=== PATIENT | male | born 1955 | race Caucasian/White ===

== ENCOUNTER 2019-07-01 11:00 | Emergency (ER) | payer OTHER ==
[~2019-07-01] VITALS: Ht 182.9 cm; Wt 81.8 kg
[2019-07-01 11:06] VITALS: Ht 182.9 cm; Wt 81.8 kg
[2019-07-01] MEDS ORDERED: OMEPRAZOLE20 M1 PO (11:08)
[2019-07-01] MEDS ORDERED: PRAVACHOL20 MG (11:09)
[2019-07-01] MEDS ORDERED: BAYER CHEWABLE81 MG PO (11:10)
[2019-07-01] MEDS ORDERED: CETIRIZINE HCL5 MG PO (11:10)
[2019-07-01 11:57] LABS: BASOPHILS 0.2 % (0-2); EOSINOPHILS 0 % (0-7); HEMATOCRIT 44.7 % (42.0-54.0); HEMOGLOBIN 14.9 g/dL (13.5-17.5); IMMATURE GRANULOCYTES 0.3 % (0-5); LYMPHOCYTES 5.4 % (15-50); MCH 33.1 pg (26.0-34.0); MCHC 33.3 g/dL (31.0-37.0); MCV 99.3 fL (80.0-100.0); MEAN PLATELET VOLUME 9.4 fL (7.4-10.4); MONOCYTES 10.5 % (2-11); NEUTROPHILS 83.6 % (40-80); PLATELET COUNT 205 10x3/uL (130-400)
[2019-07-01 12:06] LABS: CALC OSMOLALITY 271 mosm/kg (275-300); CALCIUM 8.8 mg/dL (8.5-10.1); CHLORIDE - SERUM 100 mmol/L (98-107); CREATININE - SERUM 0.9 mg/dL (0.6-1.3); GLUCOSE 104 mg/dL (74-106); SODIUM 136 mmol/L (136-145); UREA NITROGEN 13 mg/dL (7-18); eGFR NON AFRICAN AMERICAN 90 mL/min (90-120)
[2019-07-01 12:22] LABS: INR 0.95 (0.85-1.17); PROTIME 12.6 SECONDS (11.6-15.0)
[2019-07-01 12:23] LABS: ALBUMIN 3.5 g/dL (3.4-5.0); ALKALINE PHOSPHATASE 86 U/L (46-116); ALT (SGPT) 17 U/L (10-68); APTT 29.9 SECONDS (22.8-39.4); CKMB 0.7 U/L (0.0-3.6); CREATINE KINASE 149 UL (21-232); MAGNESIUM - SERUM 1.7 mg/dL (1.8-2.4); PRO BNP 264 pg/mL (0-125); PROTEIN - SERUM 7.8 g/dL (6.4-8.2)
[2019-07-01 12:29] LABS: TROPONIN-I < 0.017 ng/mL (0.000-0.060)
[2019-07-01] MEDS ORDERED: TAMIFLU75 MG PO (12:51)
[2019-07-01] MEDS ORDERED: GUAIFENESI100 MG/5 M PO (12:51)
[2019-07-01] MEDS ORDERED: ZOFRAN4 MG PO (12:51)
[2019-07-01 14:12] VITALS: BP 152/74
== END 2019-07-01 14:05 | disposition home or self-care (01) ==
LOC: D.ER 11:00
PROVIDERS: Family Medicine
DX: J10.1 Influenza due to other identified influenza virus with other respiratory manifestations (principal); R53.1 Weakness; Z72.0 Tobacco use

== ENCOUNTER 2020-08-14 17:17 | Emergency (ER) | payer MEDICARE, OTHER ==
[~2020-08-14] VITALS: Ht 182.9 cm; Wt 81.8 kg
[~2020-08-14 17:17] MED LIST: BAYER CHEWABLE81 MG PO; CETIRIZINE HCL5 MG PO; GUAIFENESI100 MG/5 M PO; OMEPRAZOLE20 M1 PO; PRAVACHOL20 MG; TAMIFLU75 MG PO; ZOFRAN4 MG PO
[2020-08-14 17:32] VITALS: Ht 182.9 cm; Wt 81.8 kg
[2020-08-14 17:45] LABS: BASOPHILS 0.7 % (0-2); HEMOGLOBIN 14.4 g/dL (13.5-17.5); IMMATURE GRANULOCYTES 0.1 % (0-5); LYMPHOCYTE ABS# 2.57 10x3/uL (1.32-3.57); LYMPHOCYTES 36.7 % (15-50); MCH 33.7 pg (26.0-34.0); MCHC 33.5 g/dL (31.0-37.0); MCV 100.7 fL (80.0-100.0); MEAN PLATELET VOLUME 9.5 fL (7.4-10.4); MONOCYTES 11.6 % (2-11); NEUTROPHIL ABS# 3.29 10x3/uL (1.78-5.38); NEUTROPHILS 46.9 % (40-80); RBC 4.27 10x6/uL (4.20-6.10); RDW 13.4 % (11.5-14.5)
[2020-08-14 17:53] LABS: PLATELET COUNT 249 10x3/uL (130-400)
[2020-08-14 17:55] LABS: CALC OSMOLALITY 275 mosm/kg (275-300); CALCIUM 9.4 mg/dL (8.5-10.1); CARBON DIOXIDE 27.7 mmol/L (21.0-32.0); CHLORIDE - SERUM 101 mmol/L (98-107); CREATININE - SERUM 0.9 mg/dL (0.6-1.3); GLUCOSE 86 mg/dL (74-106); POTASSIUM - SERUM 4.9 mmol/L (3.5-5.1); SODIUM 138 mmol/L (136-145); UREA NITROGEN 15 mg/dL (7-18); eGFR NON AFRICAN AMERICAN 90 mL/min (90-120)
[2020-08-14 17:57] LABS: APTT 28.3 SECONDS (22.8-39.4); INR 1.03 (0.85-1.17); PROTIME 12.5 SECONDS (11.6-15.0)
[2020-08-14 18:10] LABS: ALKALINE PHOSPHATASE 74 U/L (30-120); ALT (SGPT) 26 U/L (10-68); BILIRUBIN - TOTAL 0.48 mg/dL (0.2-1.3); CKMB 0.2 U/L (0.0-3.6); CREATINE KINASE 143 UL (21-232); MAGNESIUM - SERUM 2.1 mg/dL (1.8-2.4); PROTEIN - SERUM 7.8 g/dL (6.4-8.2)
[2020-08-14 18:20] LABS: TROPONIN-I < 0.017 ng/mL (0.000-0.060)
[2020-08-14] MEDS ORDERED: LISINOPRIL5 MG PO (20:29)
[2020-08-14 21:21] VITALS: BP 170/99
== END 2020-08-14 21:23 | disposition home or self-care (01) ==
LOC: D.ER 17:17
PROVIDERS: Family Medicine
DX: R07.9 Chest pain, unspecified (principal); K44.9 Diaphragmatic hernia without obstruction or gangrene; I10 Essential (primary) hypertension; K21.9 Gastro-esophageal reflux disease without esophagitis; Z72.0 Tobacco use